=== PATIENT | male | born 1940 | race Caucasian/White ===

== ENCOUNTER 2021-03-23 07:35 | Emergency (ER) | payer MEDICARE ==
[~2021-03-23] VITALS: Ht 190.5 cm; Wt 97.7 kg
[2021-03-23] MEDS ORDERED: LOSA50TA3 PO (08:19)
[2021-03-23] MEDS ORDERED: ondansetron/PF 4mg/2ml inj IV ONE (08:25)
[2021-03-23] MEDS ORDERED: pantoprazole 40 MG vial IV ONE (08:25)
[2021-03-23] MEDS ORDERED: normal saline 1000ML IV soln IVB ONE (08:25)
[2021-03-23] MEDS ORDERED: CASIRIVIMAB/IMDEVIMAB inject. 10 ML in normal saline 100ml IV soln 100 ML IV ONE (08:45)
[2021-03-23] MEDS ORDERED: BAMLANIVIMAB 700MG, ETESEVIMAB 1,400MG in NS 100mL (Total vol 160ml) IV ONE (09:40)
--- NOTE | 2021-03-23 09:54 | NUR ---
JOSÉ MIGUEL MACIAS [phone]
[2021-03-23 09:56] LABS: BASOPHILS # (AUTO) 0.1 X10'3 (0-0.2); BASOPHILS % (AUTO) 1.6 % (0-1); EOSINOPHILS % (AUTO) 0.2 % (0-6); HEMATOCRIT 41.4 % (42.0-52.0); HEMOGLOBIN 14.2 g/dl (14.0-17.9); LYMPHOCYTES # (AUTO) 0.5 X10'3 (1.1-4.8); LYMPHOCYTES % (AUTO) 11.3 % (21-51); MEAN CORPUSCULAR HGB CONC 34.4 g/dL (33.0-36.5); MEAN PLATELET VOLUME 6.8 FL (7.4-10.4); MONOCYTES # (AUTO) 0.5 X10'3 (0-0.9); MONOCYTES % (AUTO) 10.5 % (2-12); NEUTROPHILS # (AUTO) 3.5 X10'3 (1.8-7.7); NEUTROPHILS % (AUTO) 76.4 % (42-75); PLATELET COUNT 124 X10'3 (140-440); RED BLOOD COUNT 4.46 X10'6 (4.70-6.10); RED CELL DISTRIBUTION WIDTH 13.7 % (11.5-14.5); WHITE BLOOD COUNT 4.5 X10'3 (4.5-11.0)
[2021-03-23 10:20] LABS: ALANINE AMINOTRANSFERASE 26 U/L (12-78); ALBUMIN 3.4 G/DL (3.4-5.0); ALBUMIN/GLOBULIN RATIO 0.9 (1.1-1.5); ALKALINE PHOSPHATASE 79 IU/L (46-116); ANION GAP 6 (8-16); ASPARTATE AMINO TRANSFERASE 30 U/L (10-37); BILIRUBIN,TOTAL 0.5 MG/DL (0.1-1.0); BLOOD UREA NITROGEN 16 MG/DL (7-18); CHLORIDE 102 MMOL/L (99-107); CREATININE 0.89 MG/DL (0.60-1.10); GLUCOSE 103 MG/DL (70-104); LIPASE 71 U/L (73-393); POTASSIUM 3.9 MMOL/L (3.5-5.1); SODIUM 135 MMOL/L (135-145); TOTAL CARBON DIOXIDE 27.4 MMOL/L (24-32); TOTAL PROTEIN 7.3 G/DL (6.4-8.2); eGFR 82 ML/MIN
[2021-03-23 10:24] LABS: CLARITY,URINE CLEAR (Clear); COLOR,URINE YELLOW (Yellow); PH,URINE 6.5 (4.8-8.0); UA COLLECTION TYPE URINAL
[2021-03-23 10:24] LABS: CALCIUM 8.4 MG/DL (8.5-10.1)
[2021-03-23 10:25] LABS: GLUCOSE, URINE NEGATIVE (Neg); KETONES,URINE 80 mg/dl (Neg); LEUKOCYTE ESTERASE ,URINE NEGATIVE (Neg); NITRITES, URINE NEGATIVE (Neg); OCCULT BLOOD,URINE TRACE-LYSED (Neg); PROTEIN,URINE TRACE mg/dl (Neg); UROBILINOGEN,URINE 0.2 E.U/dL (0.2-1.0)
[2021-03-23 10:28] LABS: BACTERIA,URINE NONE SEEN /HPF (Neg); MUCUS STRANDS FEW /LPF (Neg); RBC,URINE 0-2 /HPF (0-2); SQUAMOUS EPITHELIAL CELL,UR NONE SEEN /LPF (FEW); WBC,URINE NONE SEEN /HPF (0-4)
[2021-03-23] MEDS ORDERED: PANT-47 PO (10:34)
[2021-03-23] MEDS ORDERED: ONDA8TAB13 PO (10:34)
[2021-03-23 12:36] VITALS: BP 145/81
== END 2021-03-23 15:45 | disposition home or self-care (01) ==
LOC: ER 07:36 → EDBD 07:36 → ER 15:45
DX: U07.1 COVID-19 (principal); R11.0 Nausea; R42 Dizziness and giddiness; R06.02 Shortness of breath; R05.9 Cough, unspecified; I10 Essential (primary) hypertension; Z79.899 Other long term (current) drug therapy
CPT/HCPCS: 36415; 71045; 80053; 81001; 83605; 83690; 84484; 85025; 85610; 87040; 96374; 96375; 99284; C9113; J2405; J7030; M0245; Q0245; Q0239

== ENCOUNTER 2021-03-30 08:06 | Inpatient (IN) | payer MEDICARE ==
[~2021-03-30] VITALS: Ht 190.5 cm; Wt 100.0 kg
[~2021-03-30 08:06] MED LIST: LOSA50TA3 PO; ONDA8TAB13 PO; PANT-47 PO
[2021-03-30 09:23] LABS: BASOPHILS % (AUTO) 0.2 % (0-1); EOSINOPHILS % (AUTO) 0.5 % (0-6); HEMATOCRIT 39.9 % (42.0-52.0); HEMOGLOBIN 13.6 g/dl (14.0-17.9); LYMPHOCYTES # (AUTO) 0.5 X10'3 (1.1-4.8); LYMPHOCYTES % (AUTO) 9.7 % (21-51); MEAN CORPUSCULAR HEMOGLOBIN 31.1 PG (27.0-31.0); MEAN CORPUSCULAR VOLUME 91.6 FL (78-98); MONOCYTES # (AUTO) 0.6 X10'3 (0-0.9); NEUTROPHILS # (AUTO) 3.8 X10'3 (1.8-7.7); NEUTROPHILS % (AUTO) 77.6 % (42-75); PLATELET COUNT 212 X10'3 (140-440); RED BLOOD COUNT 4.35 X10'6 (4.70-6.10); RED CELL DISTRIBUTION WIDTH 13.6 % (11.5-14.5); WHITE BLOOD COUNT 4.9 X10'3 (4.5-11.0)
[2021-03-30 09:43] LABS: ALANINE AMINOTRANSFERASE 57 U/L (12-78); ALBUMIN 2.7 G/DL (3.4-5.0); ALBUMIN/GLOBULIN RATIO 0.6 (1.1-1.5); ALKALINE PHOSPHATASE 58 IU/L (46-116); ASPARTATE AMINO TRANSFERASE 78 U/L (10-37); BILIRUBIN,TOTAL 1.2 MG/DL (0.1-1.0); BLOOD UREA NITROGEN 19 MG/DL (7-18); C-REACTIVE PROTEIN 5.42 MG/DL (0.0-0.5); CALCIUM 8.5 MG/DL (8.5-10.1); CHLORIDE 102 MMOL/L (99-107); CREATININE 0.76 MG/DL (0.60-1.10); GLUCOSE 127 MG/DL (70-104); POTASSIUM 3.5 MMOL/L (3.5-5.1); TOTAL CARBON DIOXIDE 27.4 MMOL/L (24-32); TOTAL PROTEIN 6.9 G/DL (6.4-8.2); eGFR > 90 ML/MIN
[2021-03-30 09:44] LABS: ANION GAP 10 (8-16); SODIUM 139 MMOL/L (135-145)
[2021-03-30] MEDS ORDERED: ondansetron/PF 4mg/2ml inj IV ONE (10:00)
[2021-03-30] MEDS ORDERED: iohexol 350MG/ML 100ml bottle IV ONE (10:10)
[2021-03-30] MEDS ORDERED: normal saline 1000ml 1,000 ML IV ONE (11:25)
[2021-03-30] MEDS ORDERED: ALBUTEROL INHALER 1 PUFF/90 MCG INHALER IH PRN (13:15)
[2021-03-30] MEDS: normal saline 1000ml 1,000 ML IV SCH (13:15)
[2021-03-30] MEDS ORDERED: magnesium 4gm in 100ml NS 100 ML IV PRN (13:15)
[2021-03-30] MEDS ORDERED: magnesium Cl slow-release 64mg tablet PO PRN (13:15)
[2021-03-30] MEDS ORDERED: acetaminophen 325mg tablet PO PRN (13:15)
[2021-03-30] MEDS ORDERED: potassium Cl 20 mEq SR tablet PO PRN ×2 (13:15)
[2021-03-30] MEDS ORDERED: magnesium 2GM in 50ml NS 50 ML IV PRN (13:15)
[2021-03-30] MEDS ORDERED: potassium Cl 40MEQ/1/2NS 520ml 520 ML IV PRN ×2 (13:15)
[2021-03-30] MEDS ORDERED: ondansetron/PF 4mg/2ml inj IV PRN (13:15)
[2021-03-30] MEDS ORDERED: PANT40TA54 PO (13:25)
[2021-03-30] MEDS: enoxaparin 40mg/0.4ml syringe SUBCUT SCH (16:10)
[2021-03-30] MEDS: pantoprazole 40mg Tablet.DR PO SCH (16:10)
[2021-03-30] MEDS: losartan 50mg tablet PO SCH (16:10)
[2021-03-30] MEDS: K and/or MAG REPLACEMENT MC SCH (20:00)
[2021-03-31] MEDS: enoxaparin 40mg/0.4ml syringe SUBCUT SCH (07:37)
[2021-03-31] MEDS: losartan 50mg tablet PO SCH (07:39)
[2021-03-31] MEDS: pantoprazole 40mg Tablet.DR PO SCH (07:39)
[2021-03-31] MEDS: K and/or MAG REPLACEMENT MC SCH ×2 (07:40→20:00)
[2021-03-31 07:53] LABS: BASOPHILS % (AUTO) 0.3 % (0-1); EOSINOPHILS # (AUTO) 0.1 X10'3 (0-0.9); EOSINOPHILS % (AUTO) 1.4 % (0-6); HEMATOCRIT 35.5 % (42.0-52.0); HEMOGLOBIN 12.4 g/dl (14.0-17.9); LYMPHOCYTES # (AUTO) 0.7 X10'3 (1.1-4.8); LYMPHOCYTES % (AUTO) 14.8 % (21-51); MEAN CORPUSCULAR HEMOGLOBIN 31.6 PG (27.0-31.0); MEAN CORPUSCULAR VOLUME 90.2 FL (78-98); MEAN PLATELET VOLUME 6.3 FL (7.4-10.4); MONOCYTES # (AUTO) 0.8 X10'3 (0-0.9); MONOCYTES % (AUTO) 17.4 % (2-12); NEUTROPHILS # (AUTO) 3.2 X10'3 (1.8-7.7); NEUTROPHILS % (AUTO) 66.1 % (42-75); PLATELET COUNT 215 X10'3 (140-440); RED BLOOD COUNT 3.94 X10'6 (4.70-6.10); RED CELL DISTRIBUTION WIDTH 13.6 % (11.5-14.5); WHITE BLOOD COUNT 4.8 X10'3 (4.5-11.0)
[2021-03-31 08:01] LABS: ALBUMIN 2.3 G/DL (3.4-5.0); ANION GAP 9 (8-16); BLOOD UREA NITROGEN 15 MG/DL (7-18); BUN/CREATININE RATIO 20.3 (5.4-32.0); CALCIUM 8.3 MG/DL (8.5-10.1); CHLORIDE 106 MMOL/L (99-107); CREATININE 0.74 MG/DL (0.60-1.10); GLUCOSE 114 MG/DL (70-104); MAGNESIUM 2.4 MG/DL (1.5-2.4); POTASSIUM 3.6 MMOL/L (3.5-5.1); SODIUM 142 MMOL/L (135-145); TOTAL CARBON DIOXIDE 26.7 MMOL/L (24-32); eGFR > 90 ML/MIN
[2021-03-31] MEDS: normal saline 1000ml 1,000 ML IV SCH (10:09)
--- NOTE | 2021-03-31 13:00 | NUR ---
Pt is awake and alert. On 3L NC. Ate 25% of lunch. Pt wishes to go home. He understands that he needs to have home O2 and requests an Oxygen concentrator.
[2021-03-31] MEDS ORDERED: temazepam 15mg capsule PO ONE (20:25)
--- NOTE | 2021-03-31 20:38 | NUR ---
pt refused iv fluids says "will try to drink as much water as possible."
[2021-04-01 06:06] LABS: BASOPHILS % (AUTO) 0.3 % (0-1); EOSINOPHILS # (AUTO) 0.2 X10'3 (0-0.9); EOSINOPHILS % (AUTO) 3.2 % (0-6); HEMOGLOBIN 12.5 g/dl (14.0-17.9); LYMPHOCYTES # (AUTO) 0.7 X10'3 (1.1-4.8); LYMPHOCYTES % (AUTO) 14.3 % (21-51); MEAN CORPUSCULAR HGB CONC 33.9 g/dL (33.0-36.5); MEAN CORPUSCULAR VOLUME 91.5 FL (78-98); MEAN PLATELET VOLUME 6.6 FL (7.4-10.4); MONOCYTES # (AUTO) 0.9 X10'3 (0-0.9); MONOCYTES % (AUTO) 18.5 % (2-12); NEUTROPHILS # (AUTO) 3.1 X10'3 (1.8-7.7); NEUTROPHILS % (AUTO) 63.7 % (42-75); PLATELET COUNT 243 X10'3 (140-440); RED BLOOD COUNT 4.04 X10'6 (4.70-6.10); RED CELL DISTRIBUTION WIDTH 13.4 % (11.5-14.5); WHITE BLOOD COUNT 4.8 X10'3 (4.5-11.0)
[2021-04-01] MEDS: normal saline 1000ml 1,000 ML IV SCH (06:12)
[2021-04-01 06:36] LABS: ALBUMIN 2.1 G/DL (3.4-5.0); ANION GAP 8 (8-16); BLOOD UREA NITROGEN 10 MG/DL (7-18); BUN/CREATININE RATIO 14.5 (5.4-32.0); CALCIUM 8.3 MG/DL (8.5-10.1); CHLORIDE 104 MMOL/L (99-107); CREATININE 0.69 MG/DL (0.60-1.10); GLUCOSE 106 MG/DL (70-104); MAGNESIUM 2.3 MG/DL (1.5-2.4); POTASSIUM 3.5 MMOL/L (3.5-5.1); SODIUM 140 MMOL/L (135-145); TOTAL CARBON DIOXIDE 28.4 MMOL/L (24-32); eGFR > 90 ML/MIN
[2021-04-01] MEDS: K and/or MAG REPLACEMENT MC SCH ×2 (08:00→20:00)
[2021-04-01] MEDS: enoxaparin 40mg/0.4ml syringe SUBCUT SCH (08:53)
[2021-04-01] MEDS: pantoprazole 40mg Tablet.DR PO SCH (08:53)
[2021-04-01] MEDS: losartan 50mg tablet PO SCH (08:53)
--- NOTE | 2021-04-01 10:54 | NUR ---
Patient in room ED 1. I have received report from Caitlin IN ED and had the opportunity to ask questions and assume patient care.
[2021-04-01 12:45] VITALS: BP 141/72
[2021-04-01] MEDS: metoclopramide 5 mg/ml inj IV PRN (12:58)
[2021-04-01 14:00] VITALS: BP 156/76
--- NOTE | 2021-04-01 16:06 | NUR ---
Paged Dr. cheung about Decadron and remdesiver order.
[2021-04-01 18:00] VITALS: BP 148/76
--- NOTE | 2021-04-01 18:21 | NUR ---
patient report given to Rick VEGA
[2021-04-01] MEDS: temazepam 15mg capsule PO PRN (20:52)
--- NOTE | 2021-04-01 21:00 | NUR ---
Called Dr Stiles re:Decadron and Remdesevir. Gave order for Decadron. Infectious disease still needs to evaluate patient before Remdesevir can be considered.
[2021-04-01] MEDS ORDERED: dexamethasone inj 6 MG in dextrose 5%-water 100 ML IV ONE (21:30)
[2021-04-01 22:00] VITALS: BP 146/76
[2021-04-02] MEDS: normal saline 1000ml 1,000 ML IV SCH (01:15)
[2021-04-02 02:00] VITALS: BP 144/75
[2021-04-02 06:10] VITALS: BP 154/80
[2021-04-02 06:49] LABS: BASOPHILS % (AUTO) 0.1 % (0-1); EOSINOPHILS % (AUTO) 0.1 % (0-6); HEMOGLOBIN 12.9 g/dl (14.0-17.9); LYMPHOCYTES # (AUTO) 0.4 X10'3 (1.1-4.8); LYMPHOCYTES % (AUTO) 10.7 % (21-51); MEAN CORPUSCULAR HEMOGLOBIN 31.7 PG (27.0-31.0); MEAN CORPUSCULAR HGB CONC 34.8 g/dL (33.0-36.5); MEAN CORPUSCULAR VOLUME 91.1 FL (78-98); MEAN PLATELET VOLUME 6.3 FL (7.4-10.4); MONOCYTES # (AUTO) 0.3 X10'3 (0-0.9); MONOCYTES % (AUTO) 7.6 % (2-12); NEUTROPHILS # (AUTO) 3.3 X10'3 (1.8-7.7); NEUTROPHILS % (AUTO) 81.5 % (42-75); PLATELET COUNT 278 X10'3 (140-440); RED BLOOD COUNT 4.06 X10'6 (4.70-6.10); RED CELL DISTRIBUTION WIDTH 13.3 % (11.5-14.5); WHITE BLOOD COUNT 4.1 X10'3 (4.5-11.0)
[2021-04-02 07:11] LABS: ALBUMIN 2.3 G/DL (3.4-5.0); ANION GAP 7 (8-16); BLOOD UREA NITROGEN 11 MG/DL (7-18); BUN/CREATININE RATIO 15.5 (5.4-32.0); CALCIUM 8.6 MG/DL (8.5-10.1); CHLORIDE 106 MMOL/L (99-107); CREATININE 0.71 MG/DL (0.60-1.10); GLUCOSE 149 MG/DL (70-104); MAGNESIUM 2.3 MG/DL (1.5-2.4); POTASSIUM 4.1 MMOL/L (3.5-5.1); SODIUM 141 MMOL/L (135-145); TOTAL CARBON DIOXIDE 28.2 MMOL/L (24-32); eGFR > 90 ML/MIN
[2021-04-02] MEDS: pantoprazole 40mg Tablet.DR PO SCH (07:25)
[2021-04-02] MEDS: losartan 50mg tablet PO SCH (07:25)
[2021-04-02] MEDS: enoxaparin 40mg/0.4ml syringe SUBCUT SCH (07:26)
[2021-04-02] MEDS ORDERED: dexamethasone inj 5 MG in dextrose 5%-water 100 ML IV SCH (08:00)
[2021-04-02] MEDS: K and/or MAG REPLACEMENT MC SCH ×2 (08:00→19:12)
[2021-04-02 10:00] VITALS: BP 134/68
[2021-04-02] MEDS ORDERED: magnesium hydroxide 30ml (MOM) UD suspension PO PRN (10:25)
[2021-04-02] MEDS: docusate sod 100mg capsule PO SCH ×2 (11:03→19:12)
[2021-04-02] MEDS: metoclopramide 5 mg/ml inj IV PRN (13:39)
--- NOTE | 2021-04-02 16:16 | NUR ---
I walked patient to doorway on 6 and then 8 L NC. He desaturated down into low 80's about 83, 84%. i sat him in chair to change his bed, he recovered on 8L to the low 90's. Patient back to bed on 5L and sats in low 90's
[2021-04-02 18:00] VITALS: BP 152/76
[2021-04-02] MEDS: temazepam 15mg capsule PO PRN (19:12)
[2021-04-02] MEDS: dexamethasone inj 6 MG in dextrose 5%-water 100 ML IV SCH (19:12)
[2021-04-02 22:00] VITALS: BP 142/73
[2021-04-03 02:00] VITALS: BP 139/83
[2021-04-03 06:00] VITALS: BP 159/78
[2021-04-03 07:07] LABS: BASOPHILS % (AUTO) 0.1 % (0-1); EOSINOPHILS % (AUTO) 0 % (0-6); HEMATOCRIT 36.9 % (42.0-52.0); HEMOGLOBIN 12.9 g/dl (14.0-17.9); LYMPHOCYTES # (AUTO) 0.6 X10'3 (1.1-4.8); LYMPHOCYTES % (AUTO) 7.8 % (21-51); MEAN CORPUSCULAR HEMOGLOBIN 32.1 PG (27.0-31.0); MEAN CORPUSCULAR HGB CONC 35.1 g/dL (33.0-36.5); MEAN CORPUSCULAR VOLUME 91.5 FL (78-98); MEAN PLATELET VOLUME 6.6 FL (7.4-10.4); MONOCYTES # (AUTO) 0.9 X10'3 (0-0.9); MONOCYTES % (AUTO) 10.9 % (2-12); NEUTROPHILS # (AUTO) 6.5 X10'3 (1.8-7.7); NEUTROPHILS % (AUTO) 81.2 % (42-75); PLATELET COUNT 310 X10'3 (140-440); RED BLOOD COUNT 4.03 X10'6 (4.70-6.10); RED CELL DISTRIBUTION WIDTH 13.6 % (11.5-14.5); WHITE BLOOD COUNT 8.1 X10'3 (4.5-11.0)
[2021-04-03 07:15] LABS: ALBUMIN 2.2 G/DL (3.4-5.0); ANION GAP 8 (8-16); BLOOD UREA NITROGEN 14 MG/DL (7-18); BUN/CREATININE RATIO 21.9 (5.4-32.0); C-REACTIVE PROTEIN 4.96 MG/DL (0.0-0.5); CALCIUM 8.8 MG/DL (8.5-10.1); CHLORIDE 107 MMOL/L (99-107); CREATININE 0.64 MG/DL (0.60-1.10); GLUCOSE 141 MG/DL (70-104); MAGNESIUM 2.3 MG/DL (1.5-2.4); POTASSIUM 4.5 MMOL/L (3.5-5.1); SODIUM 142 MMOL/L (135-145); TOTAL CARBON DIOXIDE 26.8 MMOL/L (24-32); eGFR > 90 ML/MIN
[2021-04-03 07:20] LABS: D-DIMER 14.75 MG/L FEU (0-0.50)
[2021-04-03] MEDS: docusate sod 100mg capsule PO SCH (08:00)
[2021-04-03] MEDS: K and/or MAG REPLACEMENT MC SCH (08:00)
[2021-04-03] MEDS: enoxaparin 40mg/0.4ml syringe SUBCUT SCH (09:04)
[2021-04-03] MEDS: losartan 50mg tablet PO SCH (09:05)
[2021-04-03] MEDS: pantoprazole 40mg Tablet.DR PO SCH (09:05)
[2021-04-03] MEDS: dexamethasone inj 6 MG in dextrose 5%-water 100 ML IV SCH (09:05)
[2021-04-03 10:00] VITALS: BP 146/78
--- NOTE | 2021-04-03 11:58 | NUR ---
O2 Sat at rest on room air:__88_% If below 89%: Recovery O2 Sat at rest on __5_LPM:__92_%:___% via nc (mask/nasal cannula, etc..) No further documentation is necessary. If O2 Sat did not drop below 89% on room air,ambulate patient on room air. O2 Sat while ambulating on room air:___% Recovery O2 Sat while ambulating on ___LPM:___% No further documentation is necessary. If patient does not drop below 89% while ambulating, he/she does not qualify for home O2.
[2021-04-03] MEDS ORDERED: ASPI81TA52 PO (14:40)
[2021-04-03] MEDS ORDERED: ALBU6.7H9 IH (14:40)
[2021-04-03] MEDS ORDERED: PRED10TA PO (14:40)
--- NOTE | 2021-04-03 18:30 | NUR ---
Received report from Milo VEGA , pt discharged and waiting for o2 delivery, will call Jen. All dicharge paperwork completed and o2 requirements satisfied before my arrival.
--- NOTE | 2021-04-03 19:45 | NUR ---
Spoke with Raffaele at [facility] and they should be at hospital in 1/2 hr was a mix up with pts O2.
--- NOTE | 2021-04-03 20:15 | NUR ---
Took down to private vehicle with O2 tank and belongings then realized i forgot 1 bag will have day shift call in am. Pt stable A and 0x4.
[2021-04-04] MEDS ORDERED: FLU VACC QS2021-22(6MOS UP)/PF 60 MCG/0.5 ML SYRINGE IM ONE (08:00)
[2021-04-04] MEDS ORDERED: pneumococcal 23-VAL P-sac vacc 25 mcg/0.5ml vial IMVAC ONE (08:00)
== END 2021-04-03 20:15 | disposition home or self-care (01) | DRG 177 ==
LOC: ER 08:07 → UNDOADMIN 13:17 → ED HOLD 13:17 → EDBEDREQSVC 03-31 17:26 → EDBEDREQ 03-31 17:26 → ORTHO 4S 04-01 11:40
PROVIDERS: ADMIT Internal Medicine; ATTEND Internal Medicine
PROC: B32T1ZZ Computerized Tomography (CT Scan) of Left Pulmonary Artery using Low Osmolar Contrast (ICD-10-PCS; 2021-03-30)
PROC: B3201ZZ Computerized Tomography (CT Scan) of Thoracic Aorta using Low Osmolar Contrast (ICD-10-PCS; 2021-03-30)
PROC: B32S1ZZ Computerized Tomography (CT Scan) of Right Pulmonary Artery using Low Osmolar Contrast (ICD-10-PCS; 2021-03-30)
PROC: 3E0234Z Introduction of Serum, Toxoid and Vaccine into Muscle, Percutaneous Approach (ICD-10-PCS; principal; 2021-04-03)
PROC: 3E02340 Introduction of Influenza Vaccine into Muscle, Percutaneous Approach (ICD-10-PCS; 2021-04-03)
DX: U07.1 COVID-19 (principal); J96.01 Acute respiratory failure with hypoxia; J12.82 Pneumonia due to coronavirus disease 2019; I10 Essential (primary) hypertension; K21.9 Gastro-esophageal reflux disease without esophagitis; E86.0 Dehydration; D64.9 Anemia, unspecified; M79.10 Myalgia, unspecified site; Z23 Encounter for immunization; Z79.899 Other long term (current) drug therapy
CPT/HCPCS: 36415; 71045; 71275; 80048; 80053; 83735; 84145; 85025; 85379; 86140; 87081; 90732; 93970; 94640; 94760; 96361; 96374; 97116; 97161; 97530; 99285; G0378; J1100; J1650; J2405; J2765; J7030; J7060; Q9967

== ENCOUNTER 2024-06-22 15:55 | Emergency (ER) | payer MEDICARE ==
[~2024-06-22] VITALS: Ht 190.5 cm; Wt 88.6 kg
[~2024-06-22 15:55] MED LIST changes: +ALBU6.7H14 IH; +LOSA-416 PO; -LOSA50TA3 PO; -ONDA8TAB13 PO; -PANT-47 PO; +PANT40TA54 PO; +PRED10TA PO
[2024-06-22 16:49] LABS: BASOPHILS % (AUTO) 0.5 % (0-1); EOSINOPHILS # (AUTO) 0.3 X10'3 (0-0.9); HEMATOCRIT 36.6 % (42.0-52.0); HEMOGLOBIN 12.2 g/dl (14.0-17.9); LYMPHOCYTES # (AUTO) 1.8 X10'3 (1.1-4.8); LYMPHOCYTES % (AUTO) 27.8 % (21-51); MEAN CORPUSCULAR HEMOGLOBIN 28.9 PG (27.0-31.0); MEAN CORPUSCULAR HGB CONC 33.2 g/dL (33.0-36.5); MEAN CORPUSCULAR VOLUME 86.9 FL (78-98); MONOCYTES # (AUTO) 0.9 X10'3 (0-0.9); MONOCYTES % (AUTO) 14.2 % (2-12); NEUTROPHILS # (AUTO) 3.5 X10'3 (1.8-7.7); NEUTROPHILS % (AUTO) 53.5 % (42-75); PLATELET COUNT 253 X10'3 (140-440); RED CELL DISTRIBUTION WIDTH 17.7 % (11.5-14.5); WHITE BLOOD COUNT 6.5 X10'3 (4.5-11.0)
[2024-06-22 17:18] LABS: ALANINE AMINOTRANSFERASE 20 U/L (12-78); ALBUMIN 3.6 G/DL (3.4-5.0); ALKALINE PHOSPHATASE 94 IU/L (46-116); ANION GAP 6 (8-16); ASPARTATE AMINO TRANSFERASE 20 U/L (10-37); BILIRUBIN,TOTAL 0.4 MG/DL (0.1-1.0); BLOOD UREA NITROGEN 16 MG/DL (7-18); BUN/CREATININE RATIO 21.3 (10.0-20.0); CALCIUM 9.1 MG/DL (8.5-10.1); CHLORIDE 104 MMOL/L (99-107); CREATININE 0.75 MG/DL (0.60-1.10); GLUCOSE 94 MG/DL (70-104); POTASSIUM 4.1 MMOL/L (3.5-5.1); PRO BRAIN NATRIURETIC PEPTIDE 123 PG/ML (0-450); SODIUM 139 MMOL/L (135-145); TOTAL CARBON DIOXIDE 29.3 MMOL/L (24-32); TOTAL PROTEIN 7.2 G/DL (6.4-8.2); eCRCL 88 ML/MIN; eGFR > 90 ML/MIN
[2024-06-22] MEDS: famotidine 20mg tablet PO ONE (20:50)
[2024-06-22 20:53] VITALS: BP 180/98; PULSE 64; RESP 10; TEMP 98.4; O2SAT 95
== END 2024-06-22 20:55 | disposition home or self-care (01) ==
LOC: ER 15:56
DX: R07.89 Other chest pain (principal); I10 Essential (primary) hypertension; I25.10 Atherosclerotic heart disease of native coronary artery without angina pectoris; Z95.5 Presence of coronary angioplasty implant and graft; Z79.899 Other long term (current) drug therapy
CPT/HCPCS: 36415; 71045; 80053; 83880; 84484; 85025; 93005; 99285